=== PATIENT | female | born 1970 | race Caucasian/White ===

== ENCOUNTER 2017-01-22 11:53 | Emergency (ER) | payer MEDICAID ==
[~2017-01-22] VITALS: Ht 157.5 cm; Wt 60.5 kg
[~2017-01-22 11:53] MED LIST: NO MEDS
[2017-01-22 11:57] VITALS: Ht 157.5 cm; Wt 60.5 kg
--- NOTE | 2017-01-22 13:47 | ERD ---
ER Documentation Chief Complaint Chief Complaint Complains of a sorethroat x 3 days HPI 46-year-old female presents with a 3 day history of sore throat, body aches and headache. She describes pain in her throat as well as on her neck which she feels her swelling. She has not had any trouble swallowing or handling her secretions. She has not had any voice changes or drooling. Denies cough, runny nose. She denies vomiting, diarrhea, rashes or neck stiffness. ROS All systems reviewed and are negative except as per history of present illness. Medications Home Meds Active Scripts Ibuprofen* (Motrin*) 600 Mg Tab, 600 MG PO Q6, #30 TAB Prov:RADHA ROMANO PA-C 01/22/17 Reported Medications [No Meds] No Conflict Check 07/14/10 Allergies Allergies: Coded Allergies: No Known Drug Allergies (Verified Allergy, Mild, 01/22/17) PMhx/Soc History of Surgery: Yes (CSECTION) Anesthesia Reaction: No Hx Neurological Disorder: No Hx Respiratory Disorders: No Hx Cardiac Disorders: No Hx Psychiatric Problems: No Hx Miscellaneous Medical Probl: No (NO OTHER MEDICAL PROBLEMS) Hx Alcohol Use: No Hx Substance Use: No Hx Tobacco Use: No Physical Exam Vitals Vital Signs Date Time Temp Pulse Resp B/P Pulse Ox O2 Delivery O2 Flow Rate FiO2 01/22/17 11:57 98.3 87 20 152/81 98 Physical Exam General: Well-developed, well-nourished. The patient appears in no acute distress. HEENT: Head is normocephalic, atraumatic. No scleral icterus. Oral pharyngeal erythema, there is no exudate, uvula is midline, no masses. No trismus or drooling. Neck: Supple. Nontender. No masses, positive cervical anterior chain lymphadenopathy. No meningismus. Lungs: Clear to auscultation. Normal air movement. Heart: Regular rate and rhythm. S1 and S2 are normal. No murmurs, gallops, or rubs. Abdomen: Nondistended. Extremities: No clubbing or cyanosis. Moving extremities x 4. No weakness. Neurologic: Alert and oriented 3. No focal deficits. Normal speech and gait. Skin: Normal turgor. No rash or lesions. Procedures/MDM Rapid strep: NEG Medical decision makin-year-old male presents with acute pharyngitis likely viral, rapid strep is negative, she does not have any anxiety, fever. Patient's symptoms are most consistent with a viral pharyngitis, does not warrant antibiotics and this was discussed with the patient which she understands and feels comfortable with the plan. There is no trismus, no abscess, no suspected tracheitis. Departure Diagnosis: Primary Impression: Sore throat Condition: Good RADHA ROMANO PA-C Jan 22, 2017 13:47
[2017-01-22] MEDS ORDERED: IBUP-1542 PO (14:50)
== END 2017-01-22 15:35 | disposition home or self-care (01) ==
LOC: FTE 11:53
DX: J02.9 Acute pharyngitis, unspecified (principal)
CPT/HCPCS: 87880; Z7502; 99283

== ENCOUNTER 2018-03-07 08:26 | Emergency (ER) | END 2018-03-07 15:10 | disposition home or self-care (01) ==